=== PATIENT | male | born 1970 | race African-American/Black ===

== ENCOUNTER 2024-07-16 21:38 | Emergency (ER) | payer MEDICAID ==
[~2024-07-16] VITALS: Ht 170.2 cm; Wt 79.0 kg
[2024-07-16 21:44] VITALS: O2SAT 99
[2024-07-16 21:51] VITALS: BP 129/64; PULSE 79; RESP 18; TEMP 98; O2SAT 97
[2024-07-16] MEDS ORDERED: MAG-55 MT (22:43)
[2024-07-16] MEDS ORDERED: OMEP10CA5 MT (22:43)
== END 2024-07-16 23:10 | disposition home or self-care (01) ==
LOC: ER 21:38
DX: K29.70 Gastritis, unspecified, without bleeding (principal); F12.10 Cannabis abuse, uncomplicated; K21.9 Gastro-esophageal reflux disease without esophagitis; Z76.0 Encounter for issue of repeat prescription
CPT/HCPCS: 93005; 99283

== ENCOUNTER 2024-12-25 06:47 | Emergency (ER) | payer MEDICAID, OTHER ==
[~2024-12-25] VITALS: Ht 170.2 cm; Wt 79.0 kg
[~2024-12-25 06:47] MED LIST: MAG-55 MT; OMEP10CA5 MT
[2024-12-25 06:53] VITALS: O2SAT 99
[2024-12-25 06:56] VITALS: BP 132/80; PULSE 72; RESP 15; TEMP 37.1; O2SAT 98
[2024-12-25] MEDS: CARBAMIDE PEROXIDE 6.5% OTIC SOLN 15ML RIGHT EAR ONE (07:48)
[2024-12-25] MEDS ORDERED: ISOP30DR11 EACH EAR (08:15)
== END 2024-12-25 08:40 | disposition home or self-care (01) ==
LOC: ER 06:47
DX: H61.21 Impacted cerumen, right ear (principal); Z79.899 Other long term (current) drug therapy; F12.90 Cannabis use, unspecified, uncomplicated
CPT/HCPCS: 69209; 99282

== ENCOUNTER 2025-01-11 21:43 | Emergency (ER) | payer MEDICAID, OTHER ==
[~2025-01-11] VITALS: Ht 170.2 cm; Wt 80.4 kg
[~2025-01-11 21:43] MED LIST changes: +ISOP30DR11 EACH EAR
[2025-01-11 21:57] VITALS: O2SAT 98
[2025-01-11 22:01] VITALS: BP 130/68; PULSE 71; RESP 18; TEMP 36.8; O2SAT 99
[2025-01-12] MEDS: KETOROLAC 15MG/ML VIAL IM ONE (02:16)
[2025-01-12 02:51] VITALS: TEMP 97.9
[2025-01-12] MEDS: ACETAMINOPHEN 500MG TABLET PO ONE (02:51)
[2025-01-12] MEDS ORDERED: NAPR-1176 MT (03:04)
== END 2025-01-12 03:16 | disposition home or self-care (01) ==
LOC: ER 21:43
DX: R51.9 Headache, unspecified (principal); F41.9 Anxiety disorder, unspecified; F12.90 Cannabis use, unspecified, uncomplicated; Z79.1 Long term (current) use of non-steroidal anti-inflammatories (NSAID); Z79.899 Other long term (current) drug therapy
CPT/HCPCS: 99282

== ENCOUNTER 2025-02-05 14:35 | Emergency (ER) | payer MEDICAID, OTHER ==
[~2025-02-05] VITALS: Ht 170.2 cm; Wt 80.7 kg
[~2025-02-05 14:35] MED LIST changes: +NAPR-1176 MT
[2025-02-05 14:38] VITALS: BP 110/70; TEMP 36.9; O2SAT 98
[2025-02-05 14:42] VITALS: PULSE 90; RESP 18; O2SAT 100
== END 2025-02-05 18:45 | disposition left against medical advice (07) ==
LOC: ER 14:35
DX: R06.02 Shortness of breath (principal); F12.10 Cannabis abuse, uncomplicated; F41.9 Anxiety disorder, unspecified; Z98.890 Other specified postprocedural states; Z77.098 Contact with and (suspected) exposure to other hazardous, chiefly nonmedicinal, chemicals; Z79.899 Other long term (current) drug therapy
CPT/HCPCS: 99281